=== PATIENT | male | born 1975 | race Caucasian/White ===

== ENCOUNTER 2023-01-02 11:18 | Emergency (ER) | payer OTHER, MEDICAID, SELFPAY ==
[2023-01-02 11:31] VITALS: BP 140/94; PULSE 90; RESP 18; TEMP 37.1; O2SAT 97; BMI 23.0
--- NOTE | 2023-01-02 11:35 | ED.WOUNDLAC ---
HPI - Wound/Laceration <Eloise Aguilar PA-C - Last Filed: 01/02/23 12:33> General Chief Complaint: Animal Bite Stated Complaint: dog bite Time Seen by Provider: 01/02/23 11:28 Source: patient Mode of arrival: Ambulatory History of Present Illness HPI narrative: 47-year-old male presents to ED with a dog bite on his right wrist which occurred 1 hour [employer]INE[employer]ORD[employer]. Patient was bit by his own dog. His dog is up-to-date on all immunizations. Patient's last tetanus was greater than 5 years ago. Patient is able to move his wrist freely and denies any changes in sensation or mobility of his hand and wrist. At home he rinsed the wound with soap and water and peroxide. Related Data Previous Rx's Medication Instructions Recorded amoxicillin 875 mg-potassium 1 tab PO BID 5 days #10 tabs 01/02/23 clavulanate 125 mg tablet mupirocin 2 % topical ointment 1 applic topical BID #15 grams 01/02/23 Allergies Allergy/AdvReac Type Severity Reaction Status Date / Time No Known Drug Allergies Allergy Verified 01/02/23 11:35 Review of Systems <Eloise Aguilar PA-C - Last Filed: 01/02/23 12:33> Review of Systems ROS Unobtainable: All systems reviewed & are unremarkable except as noted in HPI and below Patient History <Eloise Aguilar PA-C - Last Filed: 01/02/23 12:33> Social History Smoking Status: Current every day smoker Smoking Status: Current every day smoker alcohol intake frequency: other Substance Use Type: does not use Exam <Eloise Aguilar PA-C - Last Filed: 01/02/23 12:33> Narrative Exam Narrative: GENERAL: [] year old patient appears stated age. Well-developed patient, in mild distress. HEAD: Atraumatic. Normocephalic. EYES: Pupils equal round and reactive. Extraocular motions intact. No scleral icterus. No injection or drainage. ENT: Nose without bleeding, purulent drainage. Airway patent. NECK: Trachea midline. RESPIRATORY: Normal respiratory rate and effort observed EXTREMITIES: Laceration to right wrist. Normal range of motion and function of all extremities. No other abnormalities identified. Right hand and wrist with full range of motion and normal sensation and strength. Upper extremity pulses normal. NEURO: AOx3. SKIN: Right dorsal wrist with 2 cm laceration. Wound is slightly gaping the edges are easily approximated. No abnormal drainage which or other surrounding wounds. Initial Vital Signs Initial Vital Signs: Vital Signs Temperature 98.8 F 01/02/23 11:31 Pulse Rate 90 01/02/23 11:31 Respiratory Rate 18 01/02/23 11:31 Blood Pressure 140/94 H 01/02/23 11:31 Pulse Oximetry 97 01/02/23 11:31 Oxygen Delivery Method Room Air 01/02/23 11:31 <Lisa Rivera MD - Last Filed: 01/02/23 19:14> Initial Vital Signs Initial Vital Signs: Vital Signs Temperature 98.8 F 01/02/23 11:31 Pulse Rate 90 01/02/23 11:31 Respiratory Rate 18 01/02/23 11:31 Blood Pressure 140/94 H 01/02/23 11:31 Pulse Oximetry 97 01/02/23 11:31 Oxygen Delivery Method Room Air 01/02/23 11:31 Procedures <Eloise Aguilar PA-C - Last Filed: 01/02/23 12:33> Laceration Repair Laceration 1: Time of procedure: 12:15 Site: upper extremity (R wrist ) Side (If applicable): right Size (cm): 2 Description: linear Depth: simple, single layer Pre-repair: irrigated extensively Skin layer closed with: steri-strips (loosely closed, due to dog bite ) Course <Eloise Aguilar PA-C - Last Filed: 01/02/23 12:33> Orders Ordered: ED Orders 01/02/23 11:36 XR wrist RT min 3V Stat Discontinued Medications Diphtheria/Tetanus/Acell Pertussis (Tet,Diph,Pertuss(Acell),Vac/Pf 0.5 Ml Syringe) 0.5 ml IM .ONCE ONE Stop: 01/02/23 11:31 Last Admin: 01/02/23 12:17 Dose: 0.5 ml Documented By: RODRICK Vital Signs Vital signs: Vital Signs - 8 hr 01/02/23 11:31 Temperature 98.8 F Pulse Rate 90 Respiratory Rate 18 Blood Pressure 140/94 H Pulse Oximetry 97 Oxygen Delivery Method Room Air <Lisa Rivera MD - Last Filed: 01/02/23 19:14> Orders Ordered: ED Orders 01/02/23 11:36 XR wrist RT min 3V Stat Discontinued Medications Diphtheria/Tetanus/Acell Pertussis (Tet,Diph,Pertuss(Acell),Vac/Pf 0.5 Ml Syringe) 0.5 ml IM .ONCE ONE Stop: 01/02/23 11:31 Last Admin: 01/02/23 12:17 Dose: 0.5 ml Documented By: RODRICK Vital Signs Vital signs: Vital Signs - 8 hr 01/02/23 11:31 Temperature 98.8 F Pulse Rate 90 Respiratory Rate 18 Blood Pressure 140/94 H Pulse Oximetry 97 Oxygen Delivery Method Room Air MDM - Wound/Laceration <Eloise Aguilar PA-C - Last Filed: 01/02/23 12:33> Imaging Data Extremity x-ray #1: My Impression: [place] [address] XRay Report Signed Patient: Jon Kumar MR#: [id number] : 1975 Acct:[id number] Age/Sex: 47 / M Date of Service: 01/02/23 Loc: ED Accession Number: [id number] ?? Procedure: XR wrist RT min 3V Ordering Provider: Eloise Aguilar P.A-C PROCEDURE:? XR WRIST RT MIN 3V ? INDICATIONS: dog bite R wrist ? TECHNIQUE:? 4 views of the wrist were acquired.? ? COMPARISON:? None. ? FINDINGS:? ? Bones:? No fractures or dislocations.? No suspicious bony lesions.? ? Scaphoid view:? No navicular fractures are seen. ? Soft tissues:? Soft tissue gas can be seen along the ulnar aspect of the wrist.? No radiopaque foreign bodies are seen.? IMPRESSION:? Soft tissue gas is seen, without a radiopaque foreign body. ? No yokasta focal bony abnormality is seen. ? If there is strong suspicion for developing osteomyelitis, please consider a dedicated MRI without and with contrast for further evaluation (assuming that there is no contraindication to MRI).? ? ? Dictated by: Checo Gardner M.D. on 01/02/2023 at 10:51 ? ? Approved by: Checo Gardner M.D. on 01/02/2023 at 10:51 ? [facility] Narrative Medical decision making narrative: 47-year-old male presents to ED with right wrist laceration secondary to a dog bite from his own dog who is up-to-date on immunizations. The wrist was x-rayed to rule out any foreign body such as tooth fragments from the dog and it was unremarkable. Due to the location on the wrist over a joint the decision was made to avoid closure with sutures. The wound was irrigated extensively with water and Steri-Strips were applied. Patient was placed in a wrist splint to immobilize and avoid disrupting the healing. Patient was educated on signs and symptoms of infection including worsening erythema, purulent drainage, fever, decreased range of motion of the wrist. Multiple etiologies for patient's symptoms considered including, but not limited to: [Laceration, dog bite, tendon injury, nerve injury, foreign body] Prior Charts reviewed: None Labs reviewed and interpreted by myself: None Imaging reviewed: X-ray of right wrist Findings and discharge diagnosis discussed with patient/family followed by verbalization of understanding Return precautions discussed with patient/family whom verbalize understanding of diagnosis and plan Discharge Plan Departure Patient Disposition: Home Clinical Impression: Dog bite Instructions: DI for Dog Bite Activity Restrictions/Additional Instructions: You have been treated in the ED for a dog bite on your wrist. You had an x-ray done which showed no evidence of fracture or foreign body. Your wound was cleaned thoroughly and Steri-Strips were applied. Please follow wound care instructions as discussed and take antibiotics as prescribed. If you have any increased redness, drainage from the wound, pain or difficulty moving her wrist please return to the ED immediately. It was a pleasure meeting you today. Prescriptions: New amoxicillin-pot clavulanate 875-125 mg tablet 1 tab PO BID 5 Days Qty: 10 0RF mupirocin 2 % ointment 1 applic topical BID Qty: 15 0RF Stand Alone Forms: Patient Portal/API <Lisa Rivera MD - Last Filed: 01/02/23 19:14> Cosign ED Attending Cosignature Attestation: I did not see this patient. I was available at all times for consultation.
--- NOTE | 2023-01-02 11:36 | DI.RAD.S_ITS ---
PROCEDURE: XR WRIST RT MIN 3V INDICATIONS: dog bite R wrist TECHNIQUE: 4 views of the wrist were acquired. COMPARISON: None. FINDINGS: Bones: No fractures or dislocations. No suspicious bony lesions. Scaphoid view: No navicular fractures are seen. Soft tissues: Soft tissue gas can be seen along the ulnar aspect of the wrist. No radiopaque foreign bodies are seen. IMPRESSION: Soft tissue gas is seen, without a radiopaque foreign body. No yokasta focal bony abnormality is seen. If there is strong suspicion for developing osteomyelitis, please consider a dedicated MRI without and with contrast for further evaluation (assuming that there is no contraindication to MRI). Dictated by: Checo Gardner M.D. on 01/02/2023 at 10:51 Approved by: Checo Gardner M.D. on 01/02/2023 at 10:51
[2023-01-02] MEDS: TET,DIPH,PERTUSS(ACELL),VAC/PF 0.5 ML SYRINGE IM (12:17)
== END 2023-01-02 12:36 | disposition home or self-care (01) ==
PROVIDERS: Emergency Provider Physician Assistant
DX: S61.551A Open bite of right wrist, initial encounter (principal); W54.0XXA Bitten by dog, initial encounter; Z23 Encounter for immunization
CPT/HCPCS: 73110; 90471; 99283; 99284; 90715

== ENCOUNTER 2025-01-19 12:37 | Emergency (ER) | payer OTHER, MEDICAID, SELFPAY ==
[2025-01-19 12:42] VITALS: BP 131/76; PULSE 87; RESP 14; TEMP 36.4; O2SAT 94; BMI 23.0
[2025-01-19 16:30] VITALS: BP 131/71; PULSE 78; RESP 16; O2SAT 96
--- NOTE | 2025-01-19 16:55 | ED_ITS ---
HPI - Skin/Abscess/Foreign Bdy General Chief complaint: Skin/Abscess/Foreign Body Stated complaint: Lump/Cyst on upper inside butt cheek, chafing Time Seen by Provider: 01/19/25 16:55 Source: patient, RN notes reviewed and old records reviewed Mode of arrival: Ambulatory Limitations: no limitations History of Present Illness HPI narrative: 49-year-old male back tobacco use presents with complaint of a lump on the inside of his butt cheek towards the top of the crease. Patient states he has had 3 episodes in the same location before there were small pimples that is sort of drained this time it has gotten larger and more painful. Eyes has a little bit of purulent drainage in the last day. Particularly when he is seated on something warmer hard. Denies fevers denies abdominal pain denies any rectal pain. Denies any nausea or vomiting no other GI or urinary symptoms. Patient states no daily medications. Denies any drug allergies. States he uses tobacco daily, denies any daily alcohol, denies any IV or recreational drugs. Related Data Previous Rx's ?Medication ?Instructions ?Recorded mupirocin 2 % topical ointment 1 applic topical BID #1 5 grams 01/02/23 doxycycline hyclate 100 mg tablet 100 mg PO BID #20 ta bs 01/19/25 Allergies Allergy/AdvReac Type Severity Reaction Status Date / Time No Known Drug Allergies Allergy Verified 01/19/25 12:43 Review of Systems Review of Systems ROS Unobtainable: All systems reviewed & are unremarkable except as noted in HPI and below Patient History Social History Smoking Status: Former smoker Smoking Status: Former smoker tobacco type: cigars alcohol intake frequency: other Exam Narrative Exam Narrative: GENERAL: Alert and oriented x three, male in mild distress HEENT: Head normocephalic, atraumatic, EOMI, pupils reactive, face symmetric, moist mucous membranes NECK: Supple, full range of motion CARDIOVASCULAR: Regular rate and rhythm without murmurs, rubs or gallops. RESPIRATORY: Breath sounds equal bilaterally, no wheezes rales or rhonchi. ABDOMEN: Soft, nontender. Normoactive bowel sounds all 4 quadrants. No guarding or rebound, rigidity, no mass, the superior end of his gluteal crease on the right cheek that has about a 3 cm area of induration with tenderness, small amount of fluctuation. No active drainage currently. There some warmth. There is erythema present. : No CVA tenderness EXTREMITIES: Normal range of motion, no clubbing or edema. Neurovascularly intact NEUROLOGICAL: Cranial nerves II through XII grossly intact. Moving all extremities SKIN: Warm, dry, no petechiae, no rashes or lesions. Initial Vital Signs Initial Vital Signs: Vital Signs Temperature 97.5 F L 01/19/25 12:42 Pulse Rate 87 01/19/25 12:42 Respiratory Rate 14 01/19/25 12:42 Blood Pressure 131/76 01/19/25 12:42 Pulse Oximetry 94 01/19/25 12:42 Oxygen Delivery Method Room Air 01/19/25 12:42 Procedures Abscess I/D I&D #1: Site: other (R buttock, superior end gluteal crease) Sedation/analgesia: none Amount of anesthesia used (mL): 6 Technique: needle aspiration and incised with #11 blade Amount of fluid expressed (mL): 8 Irrigation: Yes Packing used?: none Course Orders Ordered: ED Orders 01/19/25 17:31 Wound Culture and Gram Stain Stat Discontinued Medications Doxycycline Hyclate (Doxycycline Hyclate 100 Mg Tablet) 100 mg PO NOW ONE Stop: 01/19/25 17:10 Last Admin: 01/19/25 17:48 Dose: 100 mg Documented By: AI Vital Signs Vital signs: Vital Signs - 8 hr 01/19/25 12:42 01/19/25 16:30 01/19/25 16:30 Temperature 97.5 F L Pulse Rate 87 78 Respiratory Rate 14 16 Blood Pressure 131/76 131/71 Pulse Oximetry 94 96 Oxygen Delivery Method Room Air 01/19/25 17:00 01/19/25 17:00 01/19/25 17:30 Temperature Pulse Rate 67 Respiratory Rate Blood Pressure 105/74 108/75 Pulse Oximetry 96 Oxygen Delivery Method 01/19/25 17:30 Temperature Pulse Rate 69 Respiratory Rate 16 Blood Pressure Pulse Oximetry 95 Oxygen Delivery Method MDM - Skin/Abscess/Foreign Bdy MDM Narrative Medical decision making narrative: Bedside ultrasound shows small fluid collection that is about 1.5cm size in it's maximum diameter does not go more than 2 cm deep from the top of the skin at the superior in his gluteal crease on the right in her butt cheek. Discussed with the patient he is open to bedside I&D. Patient had purulent drainage. Wound culture was obtained and sent. Patient is started on oral antibiotic. Discussed wound care and return precautions. Discharge Plan Departure Patient Disposition: Home Clinical Impression: Abscess of buttock, right Instructions: DI for Skin Abscess Activity Restrictions/Additional Instructions: Follow up for recheck in the next several days. Take oral antibiotics until completed. [facility] [place]. Wound Care: Keep wound(s) clean and dry. Wash daily with soap and water only. Continue with the warm compresses or warm baths 3-4 times daily for 10 minutes. Do not use over the counter products (alcohol or peroxide)on the wounds unless instructed by a physician. If wound condition worsens (increased/expanding redness, developing fluid blisters, or worsening pain), either contact your doctor for an urgent re- assessment , or return to the Emergency Department. Return if fever greater than 100.4 Fahrenheit, increased swelling, increasing pain or worsening symptoms such as increased discharge or spreading redness, new abdominal, back or rectal pain. Prescriptions: New doxycycline hyclate 100 mg tablet 100 mg PO BID Qty: 20 0RF No Action mupirocin 2 % ointment 1 applic topical BID Qty: 15 0RF Referrals: Juany Kaplan MD [Primary Care Provider, Family Practice] Stand Alone Forms: Patient Portal/API
[2025-01-19 17:00] VITALS: BP 105/74; PULSE 67; O2SAT 96
[2025-01-19 17:30] VITALS: BP 108/75; PULSE 69; RESP 16; O2SAT 95
[2025-01-19] MEDS: DOXYCYCLINE HYCLATE 100 MG TABLET PO (17:48)
== END 2025-01-19 17:54 | disposition home or self-care (01) ==
PROVIDERS: Emergency Provider Emergency Medicine; PCP Family Medicine
DX: L02.31 Cutaneous abscess of buttock (principal)
CPT/HCPCS: 10060; 87070; 87075; 87205; 99283

== ENCOUNTER 2025-03-31 06:35 | Emergency (ER) | payer OTHER, SELFPAY ==
[2025-03-31 06:41] VITALS: BP 141/74; PULSE 74; RESP 15; TEMP 36.2; O2SAT 96
--- NOTE | 2025-03-31 06:41 | ED.GENADULT ---
HPI - General Adult General Chief complaint: Skin/Abscess/Foreign Body Stated complaint: cyst on butt (plumbers crack) needs drained Time Seen by Provider: 03/31/25 06:36 History of Present Illness HPI narrative: Patient is a 49-year-old male with no pertinent past medical history comes into the ED from home for evaluation of abscess to the buttock region, patient states that it is into the same area that he recently had drained here a few months ago. He states that he has noticed some draining but is having some discomfort, no other symptoms at this time, no headache visual disturbance chest pain shortness breath fever chills nausea vomiting abdominal pain or any other GI/ symptoms time. Related Data Previous Rx's ?Medication ?Instructions ?Recorded mupirocin 2 % topical ointment 1 applic topical BID #15 grams 01/02/23 doxycycline hyclate 100 mg tablet 100 mg PO BID #20 tabs 01/19/25 Allergies Allergy/AdvReac Type Severity Reaction Status Date / Time No Known Drug Allergies Allergy Verified 03/31/25 06:40 Review of Systems Review of Systems Narrative: General: Denies fever, chills, weight loss HEENT: Denies headache, eye drainage, eye irritation, head trauma, sore throat, voice change Cardiovascular: Denies any chest pain, palpitations, tachycardia Respiratory: Denies any shortness of breath, cough, wheeze, stridor GI/: Denies any abdominal pain, nausea, vomiting, diarrhea, bright red blood per rectum, melanotic stools, urinary frequency, urinary retention, dysuria, hematuria MSK: Denies any joint pain, muscle pains, swelling Skin: Positive abscess to buttock region Neuro: Denies any headache, lightheadedness, dizziness, fainting, weakness Psych: Denies SI/HI Patient History tobacco type: cigars alcohol intake frequency: other Exam Narrative Exam Narrative: General: Cooperative, well-developed, not in acute distress HEENT: Normocephalic, atraumatic, PERRLA, normal sclera, eyelids normal Neck: Active full range of motion, atraumatic Chest: Normal to inspection, negative crepitus, no overlying erythema ecchymosis Respiratory: Normal respiratory effort, not in acute respiratory distress, clear to auscultation bilaterally negative cough, wheeze, tachypnea, rhonchi, rales Cardiology: Regular rate rhythm negative gallop, murmur, rubs GI/: No tenderness to palpation, soft, non rigid, normal to inspection, exam deferred MSK: Full active range of motion in all 4 extremities, atraumatic, no tenderness to palpation of any bony prominences Skin: There is an area of slight fluctuation/induration to the right side of the buttock region, does appear to be slightly draining Neuro: Alert awake oriented x3, moves all 4 extremities spontaneously, cranial nerves intact, able to answer all questions appropriately follows commands appropriately Psych: Cooperative, negative suicidal or homicidal ideations Procedures Abscess I/D I&D #1: Time of procedure: 06:58 Site: other (Buttock) Side (if applicable): right Local Anesthetic: lidocaine 1% and with epi Amount of anesthesia used (mL): 3 Technique: incised with #11 blade Irrigation: No Packing used?: none Medical Decision Making MDM Narrative Medical decision making narrative: 49-year-old male no pertinent past medical history comes into the ED from home for evaluation of abscess to his right buttock region, states that he has had this drained previously here few months ago, he states that it started to ?flare up on him and wanted it evaluated. On my exam there is some slight fluctuation induration to the proximal region of the right buttock, bedside ultrasound was performed did show fluid collection therefore incision drainage was performed serosanguineous fluid was drained, no packing was placed, patient will be discharged home with oral antibiotics strict return precautions and outpatient follow up, he verbalized understanding and agrees to being discharged home with outpatient follow up Discharge Plan Departure Patient Disposition: Home Clinical Impression: Pilonidal cyst Instructions: DI for Pilonidal Cyst Drainage or Removal Activity Restrictions/Additional Instructions: Please take your antibiotics to completion Please read the discharge instructions sheet carefully and bring all papers to all doctor follow-up visits, as it may contain information that your doctor may want to see. Disease processes change and evolve, if your symptoms worsen or if you develop any new symptoms that are concerning to you please return for evaluation. Your evaluation today does not show any evidence of any life-threatening/serious illnesses requiring admission to the hospital or surgery. Please follow-up with your doctor for re-evaluation in approximately 1 day. Seek immediate medical attention for any worrisome symptoms. *If you do not have a primary care provider please contact the [facility] Resource line at [phone]. They will ask some questions about your medical history and help get you set up with a doctor in the community. Prescriptions: No Action doxycycline hyclate 100 mg tablet 100 mg PO BID Qty: 20 0RF mupirocin 2 % ointment 1 applic topical BID Qty: 15 0RF Referrals: Juany Kaplan MD [Primary Care Provider, Family Practice] Stand Alone Forms: Patient Portal/API
--- NOTE | 2025-03-31 07:00 | PC.NURSE ---
Patient has been dealing with this for over 2 years
[2025-03-31] MEDS: DOXYCYCLINE HYCLATE 100 MG TABLET PO (07:01)
== END 2025-03-31 07:08 | disposition home or self-care (01) ==
PROVIDERS: Emergency Provider Student in an Organized Health Care Education/Training Program; PCP Family Medicine
DX: L05.91 Pilonidal cyst without abscess (principal)
CPT/HCPCS: 10080; 99283